=== PATIENT | male | born 1950 | race Hispanic/Latino ===

== ENCOUNTER → 2019-06-29 | Outpatient (CLI) | payer MEDICARE ==
[~2019-06-29] MED LIST: IOPAMIDOL 370 MG/ML 200 ML INFUS..BTL INJ ONE; SODIUM CHLORIDE 0.9% 50ML 50 ML ONE
[2019-06-29 13:00] LABS: BLOOD UREA NITROGEN 14 mg/dL (7-26); BUN/CREATININE RATIO 18 (6-25); CREATININE, SERUM 0.76 mg/dL (0.72-1.25); EST GLOMERULAR FILTRATION RATE > 60 ML/MIN (60-)
--- NOTE | 2019-06-29 15:35 | Diagnostic Imaging Report ---
CT the pelvis, 06/29/2019. History: Elevated PSA. Comparison: <None available>. Technique: Multidetector imaging of the pelvis was performed from the level of the iliac crests to the proximal femurs after IV and oral administration of contrast. RADIATION DOSE: Total DLP: 318 mGy*cm Dose modulation, iterative reconstruction, and/or weight based adjustment of the mA/kV was utilized to reduce the radiation dose to as low as reasonably achievable. Discussion: The bladder is unremarkable. The prostate measures 4.7 cm in transverse diameter and contains several calcifications. Seminal vesicles are unremarkable. Scattered colonic diverticuli are present without evidence of adjacent inflammation. There is no evidence of free fluid or adenopathy. A fat-containing umbilical hernia is noted. Small fat-containing bilateral inguinal hernias are present, left larger than right. Degenerative changes are noted in the lumbar spine. There are no lytic or sclerotic lesion. IMPRESSION: No acute or suspicious abnormality. Signed by: Ashok Wells on 06/29/2019 3:32 PM
--- NOTE | 2019-06-29 17:58 | Diagnostic Imaging Report ---
Bone Scan, delayed phase INDICATION: 68 M with recent elevation of PSA. PSA has been monitored since 2009. COMPARISON: CT pelvis 06/29/2019 REPORT: Approximately 3 hours following intravenous administration of 27.5 mCi of Tc-99m MDP, delayed total body images in the anterior and posterior projections and selected spot images were obtained. Focal mild to moderately increased tracer activity is seen in the lower cervical spine and in T9. Otherwise, distribution of tracer activity is unremarkable throughout the skeletal system. No abnormal accumulation of tracer is seen in the soft tissues or urinary tract. IMPRESSION: No convincing scan evidence of metastatic bone disease potentially related to prostate cancer. The mild to moderate osteoblastic processes in C7 and T9 likely represent post-traumatic and/or degenerative changes. These lesions do not have the typical intense osteoblastic activity seen with metastasis due to prostate cancer. Signed by: Dr. Natali Rodriguez M.D. on 06/29/2019 5:55 PM
== END ==
LOC: NM 11:43
PROVIDERS: ATTEND Urology
DX: R97.20 Elevated prostate specific antigen [PSA] (principal)
CPT/HCPCS: 36415; 72193; 78306; 82565; 84520; A9503; Q9967

== ENCOUNTER → 2023-12-22 | Outpatient (REF) | payer MEDICARE ==
[~2023-12-22] MED LIST changes: +ASPIRIN81 MG PO; +ATORVASTATIN CA20 MG PO; +BENICAR20 MG PO; +CLOPIDOGREL75 MG PO; +FINASTERIDE5 MG PO; +FLOMAX0.4 MG PO; +FUROSEMIDE40 MG PO; +HYDRALAZINE HC100 MG PO; -IOPAMIDOL 370 MG/ML 200 ML INFUS..BTL INJ ONE; +METOLAZONE5 MG PO; +METOPROLOL SUCC50 MG PO; +NOVOLIN R100 UNIT/1; +POTASSIUM CHLO20 ME1 PO; -SODIUM CHLORIDE 0.9% 50ML 50 ML ONE; +TOPROL XL25 MG PO; +TORSEMIDE100 MG PO
== END ==
LOC: NM 08:53
PROVIDERS: ATTEND Urology
DX: R97.20 Elevated prostate specific antigen [PSA] (principal)
CPT/HCPCS: 78306; A9503